=== PATIENT | female | born 1970 | race Caucasian/White ===

== ENCOUNTER 2020-09-12 17:38 | Emergency (ER) | payer OTHER, SELFPAY ==
--- NOTE | 2020-09-12 17:44 | ED.SKABFB ---
HPI - Skin/Abscess/Foreign Bdy General Chief complaint: Skin/Abscess/Foreign Body Stated complaint: rash Time Seen by Provider: 09/12/20 17:44 Source: patient and RN notes reviewed Mode of arrival: ambulatory Limitations: no limitations History of Present Illness HPI narrative: 50-year-old female presents with concern for rash on her chest that is spreading to her neck and bilateral cheeks. Reports several weeks ago she had a bad sunburn on her chest and when the sunburn healed she noticed her chest was itchy. Reports over the last couple of days the area has become progressively itchy and today became raised. Reports she is tried several djsj-kpf-obvpgao remedies such as p.o. Benadryl, Benadryl cream, hydrocortisone cream, Benadryl gel with no relief. Reports today she used calamine lotion with some relief. She denies any swollen lips, swollen tongue, difficulty breathing, nausea, vomiting, diarrhea. MD complaint: rash Related Data Allergies Allergy/AdvReac Type Severity Reaction Status Date / Time povidone-iodine Allergy Intermediate LOCAL RASH Verified 01/28/14 17:56 SOAP Allergy Intermediate LOCAL RASH Uncoded 01/28/14 17:56 Review of Systems Review of Systems: Narrative: CONSTITUTIONAL: Denies malaise, chills, sweats, or fever. EYES: Denies redness, or discharge. ENT: Denies swollen lips, swollen tongue CARDIOVASCULAR: Denies chest pain, palpitations, or edema. RESPIRATORY: Denies cough or dyspnea. GASTROINTESTINAL: Denies abdominal pain, nausea, vomiting, diarrhea SKIN: Reports itchy raised rash on her chest, neck, bilateral cheeks MUSCULOSKELETAL: Denies myalgia. All systems reviewed & are unremarkable except as noted in HPI and below PMFSH Comments At time of signature, agree with nursing past medical, surgical, social and family history. There is no relevant family history pertinent to the presenting complaint Exam Narrative: Exam Narrative: GENERAL: Well-appearing, well-nourished, and in no acute distress. HEAD: Normocephalic EYES: PERRLA, conjunctivae clear ENT: Nares clear. Mucous membranes moist. Oropharynx without edema, erythema or lesions. NECK: Supple. CHEST: No respiratory distress. Clear to auscultation. No bony deformities, no asymmetry. Speaks in full sentences. HEART: Regular rate and rhythm. SKIN: Warm, dry. Erythematous maculopapular rash covering chest, excluding breasts, patches of erythema with plaque and papules noted to the neck, small areas on bilateral cheeks. NEURO: Alert and oriented x3. PSYCH: Normal mood and affect Course Course Emergency Course: Patient is aware of diagnosis, understands and agrees to treatment plan. Anticipatory guidance given. Patient agrees to follow-up as directed and is aware of reasons to seek care at the emergency department. Portions of this record may have been created with voice recognition software Vital Signs Vital signs: Vital Signs Temperature 97.8 F 09/12/20 17:45 Pulse Rate 77 09/12/20 17:45 Respiratory Rate 16 09/12/20 17:45 Blood Pressure 142/70 H 09/12/20 17:45 Pulse Oximetry 99 09/12/20 17:45 Temperature 97.8 F 09/12/20 17:47 Pulse Rate 77 09/12/20 17:47 Respiratory Rate 16 09/12/20 17:47 Blood Pressure 142/70 H 09/12/20 17:47 Pulse Oximetry 99 09/12/20 17:47 Reviewed. MDM - Skin/Abscess/Foreign Bdy MDM Narrative Medical decision making narrative: Does not appear at this time to be erythema multiforme, bullous, SJS, TEN; no evidence at this time to suggest RMSF, endocarditis or Lyme disease; patient looks well, nontoxic and is tolerating oral intake; no neurologic signs or symptoms; no headache, photophobia or neck pain; afebrile; appropriate for initial outpatient treatment; discussed the importance of follow-up, patient agrees; question, viral exanthema, contact dermatitis, allergic dermatitis, eczema, urticaria, shingles. No soft palate or uvula edema, no tongue, lip edema or other mucosal involvement, no
[2020-09-12 17:45] VITALS: BP 142/70; PULSE 77; RESP 16; TEMP 36.6; O2SAT 99
[2020-09-12 17:47] VITALS: BP 142/70; PULSE 77; RESP 16; TEMP 36.6; O2SAT 99
== END 2020-09-12 17:59 | disposition home or self-care (01) ==
PROVIDERS: Emergency Provider Nurse Practitioner
DX: L30.9 Dermatitis, unspecified (principal)
CPT/HCPCS: 99213; G0463

== ENCOUNTER → 2020-10-25 08:00 | Outpatient (CLI) | payer OTHER, SELFPAY ==
--- NOTE | ~2020-10-25 | US_ITS ---
EXAMINATION: US thyroid DATE: 10/25/2020 08:31 INDICATION: Disorder of thyroid, enlarged thyroid. TECHNIQUE: Multiple ultrasound images of the thyroid were obtained. COMPARISON: None. FINDINGS: The right thyroid lobe measures 5.6 x 1.8 x 2.0 cm. The left thyroid lobe measures 6.1 x 1.6 x 1.7 c m. There are multiple nodules in the thyroid. In the right thyroid lobe, there is a 2.4 cm solid, hy poechoic, sgkis-yroz-aydb nodule with lobulated margin without echogenic foci (TI-RADS TR4). In the r ight thyroid lobe, there is a 1.5 cm solid, hypoechoic, tfvpa-cbqs-hewh nodule with ill-defined zeyad n without echogenic foci (TR4). In the right thyroid lobe, there is a 1.1 mm solid, hypoechoic, wider -than-tall nodule with ill-defined margin without echogenic foci (TR4). In the left thyroid lobe, the re is a 1.1 cm solid, hypoechoic, ksyzf-wgms-glsg nodule with ill-defined margin without echogenic fo ci (TR4). In the left thyroid lobe, there is a 1.4 cm solid, hypoechoic, jckgm-phkv-lvqx nodule with ill-defined margin without echogenic foci (TR4). IMPRESSION: 1. Multinodular goiter. Ultrasound-guided fine-needle aspiration of the 2 largest nodules is recommen ded. Reviewed, dictated and finalized at location A. AVINGS POLISHER IMPRESSION: 1. Multinodular goiter. Ultrasound-guided fine-needle aspiration of the [address] nodules is recommended.
== END ==
PROVIDERS: Visit Provider Nurse Practitioner
DX: E07.9 Disorder of thyroid, unspecified (principal); E04.2 Nontoxic multinodular goiter
CPT/HCPCS: 76536

== ENCOUNTER 2020-11-17 07:59 | Outpatient (CLI) | payer OTHER, SELFPAY ==
--- NOTE | ~2020-11-17 | MM_ITS ---
EXAMINATION: MM screening [facility] BI w giovanna HISTORY: Screening mammogram TECHNIQUE: Craniocaudal and mediolateral oblique 3-D tomosynthesis images were obtained and synthetic 2-D images were generated. CAD analysis was submitted and interpreted. COMPARISON: 09/18/2017, 04/29/2015, 03/29/2015 BREAST PARENCHYMAL COMPOSITION: The breasts are heterogeneously dense, which may obscure small masses . FINDINGS: There is no evidence of suspicious mass, calcification, or architectural distortion to sugg est malignancy in either breast. There has been no suspicious interval change. IMPRESSION: 1. No mammographic evidence of malignancy. 2. Recommend routine screening mammography in one year. BI-RADS Category 1: Negative Reviewed, dictated and finalized at location A. MONIA BOX TENDER
== END 2020-11-17 08:00 | disposition home or self-care (01) ==
LOC: ANHIMG 08:04
PROVIDERS: Visit Provider Nurse Practitioner
DX: Z12.31 Encounter for screening mammogram for malignant neoplasm of breast (principal)
CPT/HCPCS: 77063; 77067

== ENCOUNTER 2020-11-26 13:01 | Outpatient (CLI) | payer OTHER, SELFPAY ==
--- NOTE | ~2020-11-26 | US_ITS ---
EXAMINATION: 1. US FNA w image guidance 2. US FNA additional DATE: 11/26/2020 14:11 INDICATION: Nontoxic thyroid nodules. TECHNIQUE: The procedure and its benefits, risks, and benefits were discussed with the patient. Risks specifical ly discussed included bleeding. The patient verbalized understanding of the risks and agreed to proce ed. The neck was prepped and draped in the usual sterile manner. 1% lidocaine was used for local ane sthesia. 5 passes were made with a 25G needle into the lesion in superior right thyroid lobe. Appro priate needle location was documented with continuous sonographic guidance. 5 passes were made with a 25G needle into the lesion in inferior right thyroid lobe. Appropriate nee dle location was documented with continuous sonographic guidance. There were no immediate complicati ons. The patient understood to call the ordering physician for results after a week and verbalized th at understanding. FINDINGS: Grayscale ultrasound images demonstrate needles advanced into a 1.5 cm nodule in superior right thyro id lobe for biopsy. Images demonstrate needles advanced into a 2.4 cm nodule in inferior right thyroi d lobe IMPRESSION: 1. Ultrasound-guided fine needle aspiration of a nodule in superior right thyroid lobe. 2. Ultrasound-guided fine-needle aspiration of a nodule in inferior right thyroid lobe. Reviewed, dictated and finalized at location A. GER NEONATAL IMPRESSION: 1. Ultrasound-guided fine needle aspiration of a nodule in superior right thyr oid lobe. 2. Ultrasound-guided fine-needle aspiration of a nodule in inferior right thyro id lobe.
== END 2020-11-26 13:02 | disposition home or self-care (01) ==
LOC: ANHIMG 13:02
PROVIDERS: Visit Provider Nurse Practitioner Family
DX: E04.1 Nontoxic single thyroid nodule (principal)
CPT/HCPCS: 10005; 10006; 88173; 88305

== ENCOUNTER → 2022-03-10 16:28 | Outpatient (CLI) | payer OTHER, SELFPAY ==
--- NOTE | ~2022-03-10 | US_ITS ---
EXAMINATION: US thyroid DATE: 03/10/2022 16:54 INDICATION: Goiter TECHNIQUE: Multiple ultrasound images of the thyroid were obtained. COMPARISON: None. FINDINGS: The right thyroid lobe measures 5.4 x 1.6 x 1.5 cm. The left thyroid lobe measures 5.8 x 1.7 x 1.9 c m. 2.1 cm wider than tall solid isoechoic nodule with smooth margins and without internal echogenic foci (TI-RADS 3, mildly suspicious , FNA if >=2.5 cm, annual followup is >=1.5 cm). Similar appearing 1.4 cm TI RADS 3 nodule in the inferior left thyroid. There is normal echotexture, echogenicity and vascular flow throughout the remainder of the thyroid gland. IMPRESSION: 1. Bilateral TI RADS 3 thyroid nodules. Recommend one-year follow-up thyroid ultrasound. Reviewed, dictated and finalized at location A. IMPRESSION: 1. Bilateral TI RADS 3 thyroid nodules. Recommend one-year follow-up thyroid ul trasound.
== END ==
PROVIDERS: PCP Internal Medicine Endocrinology, Diabetes & Metabolism; Visit Provider Internal Medicine Endocrinology, Diabetes & Metabolism
DX: E04.2 Nontoxic multinodular goiter (principal)
CPT/HCPCS: 76536

== ENCOUNTER 2022-04-13 09:16 | Outpatient (CLI) | payer OTHER, SELFPAY ==
--- NOTE | ~2022-04-13 | MM_ITS ---
EXAMINATION: MM screening [facility] BI w giovanna HISTORY: Screening mammogram TECHNIQUE: Craniocaudal and mediolateral oblique 3-D tomosynthesis images were obtained and synthetic 2-D images were generated. CAD analysis was submitted and interpreted. COMPARISON: 11/17/2020, 09/18/2017 bilateral screening mammogram examinations BREAST PARENCHYMAL COMPOSITION: The breasts are heterogeneously dense, which may obscure small masses . FINDINGS: There is no evidence of suspicious mass, calcification, or architectural distortion to sugg est malignancy in either breast. There has been no suspicious interval change. IMPRESSION: 1. No mammographic evidence of malignancy. 2. Recommend routine screening mammography in one year. BI-RADS Category 1: Negative Reviewed, dictated and finalized at location A.
== END 2022-04-13 09:17 | disposition home or self-care (01) ==
PROVIDERS: PCP Internal Medicine Endocrinology, Diabetes & Metabolism; Visit Provider Nurse Practitioner
DX: Z12.31 Encounter for screening mammogram for malignant neoplasm of breast (principal)
CPT/HCPCS: 77063; 77067

== ENCOUNTER → 2023-09-19 14:11 | Outpatient (CLI) | payer BC, SELFPAY ==
--- NOTE | ~2023-09-19 | MM_ITS ---
EXAMINATION: MM screening [facility] w giovanna HISTORY: Screening TECHNIQUE: Craniocaudal and mediolateral oblique 3-D tomosynthesis images were obtained and synthetic 2-D images were generated. CAD analysis was submitted and interpreted. COMPARISON: Comparison to multiple prior studies sequentially, with oldest reviewed study dated 03/29. BREAST PARENCHYMAL COMPOSITION: The breasts are heterogeneously dense, which may obscure small masses . FINDINGS: There is no evidence of suspicious mass, calcification, or architectural distortion to sugg est malignancy in either breast. There has been no suspicious interval change. IMPRESSION: 1. No mammographic evidence of malignancy. 2. Recommend routine screening mammography in one year. BI-RADS Category 1: Negative Reviewed, dictated and finalized at location A. ED CIRCUIT PROCESSOR
== END ==
PROVIDERS: PCP Nurse Practitioner Family; Visit Provider Nurse Practitioner
DX: Z12.31 Encounter for screening mammogram for malignant neoplasm of breast (principal)
CPT/HCPCS: 77063; 77067

== ENCOUNTER → 2023-10-10 15:18 | Outpatient (CLI) | payer BC, SELFPAY ==
--- NOTE | ~2023-10-10 | DEXA_ITS ---
Bone Density Report Name: MANUEL TELLEZ Age: 53 Sex: Female Ethnicity: White Date of : 1970 Indication: postmenopausal; screening for osteoporosis; parental hip fracture; Referring Provider: CRISSY, SUZAN Study: Bone densitometry was performed. Exam Date: October 10, 2023 Accession number: [id number] Bone Density: Region BMD T-score Z-score Classification AP Spine (L1-L4) 1.092 0.4 1.3 Normal Femoral Neck (Left) 0.840 -0.1 0.8 Normal Total Hip (Left) 1.031 0.7 1.3 Normal Femoral Neck (Right) 0.855 0.1 0.9 Normal Total Hip (Right) 1.022 0.7 1.2 Normal Total Hip Mean 1.027 0.7 1.3 Normal World Health Organization criteria for BMD impression classify patients as: Normal (T-score at or above -1.0), Osteopenia (T-score between -1.0 and -2.5), or Osteoporosis (T-score at or below -2.5). 10-year Fracture Risk: FRAX not reported because: All T-scores for Spine Total, Hip Total, Femoral Neck at or above -1.0 Clinical Information Provided by Patient: Parent has had a hip fracture Patient maximum height was 67.75 Menopause Age: 51 Drinks caffeinated beverages Onset of menses at age 13 Number of children 2 Impression: The patient has normal bone mass. The patient has risk factors, including: parental hip fracture. Discussion: BONE DENSITY IS ABOVE THE MINIMUM DESIRABLE LEVEL AT ALL SKELETAL SITES TESTED. This patient?s bone mineral density is above the minimum desirable level (T-score -1.0 or better) at all sites measured. The patient should follow a healthful lifestyle (good nutrition with adequate calcium and vitamin D, and appropriate weight-bearing exercise). Follow-Up: Consider repeating this study in 5 years or sooner if there is some new clinical indication. Reported by: CALEB on 10/10/2023 3:47:00 PM. Reviewed, dictated and finalized at location ATracy GUERIN
== END ==
PROVIDERS: PCP Nurse Practitioner Family; Visit Provider Nurse Practitioner
DX: Z78.0 Asymptomatic menopausal state (principal)
CPT/HCPCS: 77080

== ENCOUNTER → 2024-01-04 07:54 | Outpatient (CLI) | payer BC, SELFPAY ==
--- NOTE | ~2024-01-04 | US_ITS ---
EXAMINATION: US thyroid DATE: 01/04/2024 08:14 INDICATION: Nontoxic single thyroid nodule TECHNIQUE: Multiple ultrasound images of the thyroid were obtained. COMPARISON: None. FINDINGS: The right thyroid lobe measures 6.0 x 1.6 x 1.9 cm. The left thyroid lobe measures 6.0 x 1.6 x 1.7 c m. There are 3 solid isoechoic nodule with smooth or ill-defined margins which are wider than tall a nd without echogenic foci (TI-RADS 3, mildly suspicious , FNA if >=2.5 cm, annual followup is >=1.5 c m) scattered throughout the thyroid. The largest in the right thyroid is without significant interval change measuring 1.8 cm. There is a second measuring 1 cm in the superior right thyroid which is not measured on the prior study but which appears subtly present and of similar size on one of the prior images. The largest in the left thyroid lobe is also without significant interval change measuring 1 .5 cm. There is normal echotexture, echogenicity and vascular flow throughout the remainder of the th yroid gland. IMPRESSION: 1. Bilateral BI-RADS 3 thyroid nodules. Recommend annual follow-up thyroid ultrasound. Reviewed, dictated and finalized at location A. LOPMENT AND HOUSING DIRECTOR IMPRESSION: 1. Bilateral BI-RADS 3 thyroid nodules. Recommend annual follow-up thyroid ultr asound.
== END ==
PROVIDERS: PCP Nurse Practitioner; Visit Provider Nurse Practitioner
DX: E04.2 Nontoxic multinodular goiter (principal)
CPT/HCPCS: 76536

== ENCOUNTER 2024-09-26 07:27 | Outpatient (CLI) | payer BC, SELFPAY ==
--- NOTE | ~2024-09-26 | MM_ITS ---
EXAMINATION: MM screening [facility] BI w giovanna HISTORY: Screening mammogram TECHNIQUE: Craniocaudal and mediolateral oblique 3-D tomosynthesis images were obtained and synthetic 2-D images were generated. CAD analysis was submitted and interpreted. COMPARISON: 09/19/2023, 04/13/2022, 11/17/2020 BREAST PARENCHYMAL COMPOSITION:Dense: The breasts are heterogeneously dense, which may obscure small masses. FINDINGS: No suspicious mass, calcification, or architectural distortion are identified in either tanesha ast to suggest malignancy. There has been no suspicious interval change. IMPRESSION: No mammographic evidence of malignancy. Recommend routine screening mammography in one year. BI-RADS Category 1: Negative Reviewed, dictated and finalized at location . KEAG OPERATOR
== END 2024-09-26 07:28 | disposition home or self-care (01) ==
LOC: MICIMG 07:28
PROVIDERS: PCP Obstetrics & Gynecology Gynecology; Visit Provider Nurse Practitioner Family
DX: Z12.31 Encounter for screening mammogram for malignant neoplasm of breast (principal)
CPT/HCPCS: 77063; 77067

== ENCOUNTER 2025-10-02 07:13 | Outpatient (CLI) | payer BC, SELFPAY ==
--- NOTE | ~2025-10-02 | MM_ITS ---
EXAMINATION: MM screening [facility] w giovanna HISTORY: Screening TECHNIQUE: Craniocaudal and mediolateral oblique 3-D tomosynthesis images were obtained and synthetic 2-D images were generated. CAD analysis was submitted and interpreted. COMPARISON: Comparison to multiple prior studies sequentially, with oldest reviewed study dated 09/18/2017. BREAST PARENCHYMAL COMPOSITION: Dense: The breasts are heterogeneously dense, which may obscure small masses FINDINGS: There is no evidence of suspicious mass, calcification, or architectural distortion to suggest malignancy in either breast. There has been no suspicious interval change. IMPRESSION: 1. No mammographic evidence of malignancy. 2. Recommend routine screening mammography in one year. BI-RADS Category 1: Negative Reviewed, dictated and finalized at location O. NUE STAMPER
== END 2025-10-02 07:14 | disposition home or self-care (01) ==
LOC: MICIMG 07:15
PROVIDERS: PCP Nurse Practitioner Family; Visit Provider Obstetrics & Gynecology Gynecology
DX: Z12.31 Encounter for screening mammogram for malignant neoplasm of breast (principal)
CPT/HCPCS: 77063; 77067